=== PATIENT | female | born 1940 | race Caucasian/White ===

== ENCOUNTER 2019-03-06 12:36 | Inpatient (IN) | payer MEDICARE, OTHER ==
[~2019-03-06] VITALS: Ht 160 cm; Wt 81.6 kg
[2019-03-06] VITALS (9 sets, daily range): BP systolic 90–163; BP diastolic 46–98; Ht 160 cm; Wt 81.6 kg
--- NOTE | 2019-03-06 12:50 | NUR ---
PATIENT BIBA FOR ALOC. PER MEDIC, LAST SEEN AWAKE AND ALERT AT 1030. FAMILY WAS WITH HER AND SHE WAS SITTING ON A SOFA AND PATIENT THEN LOST CONSCIOUSNESS. PER MEDICS, PATIENT THEN HAD AGONAL BREATHING BUT THERE WAS PALPABLE PULSE. ARRIVED AT BEDSIDE AND PATIENT THEN WAS TRENDING NSR. AT BEDSIDE. PATIENT WAS SEEN MOVING ARMS. PATIENT WAS UNABLE TO ANSWER QUESTIONS.
--- NOTE | 2019-03-06 13:31 | NUR ---
DECREASED FIO2 TO 40%.
--- NOTE | 2019-03-06 13:37 | NUR ---
START VERSED AT 1 MG/HR
--- NOTE | 2019-03-06 14:01 | NUR ---
PER MD, GIVE EPI DRIP AT 5 MCG/MIN.
--- NOTE | 2019-03-06 14:09 | NUR ---
XRAY AT BEDSIDE
--- NOTE | 2019-03-06 14:32 | NUR ---
WITHDREW ETT 2-3CM PER DR. FARHAN VEGA, ETT POSITIONED AT 21CM AT THE LIP AND RESECURED BY ANCHORFAST.
[2019-03-06 14:35] LABS: BASOPHIL % 0 % (0-2); PLATELET COUNT 128 x10^3mcL (130-400); RED CELL DISTRIBUTION WIDTH 15.6 % (11.5-14.5)
[2019-03-06 16:14] LABS: ALKALINE PHOSPHATASE 130 U/L (46-116); ALT/SGPT 946 U/L (14-59); BILIRUBIN TOTAL 1.1 mg/dL (0.20-1.00); CALCIUM 10.9 mg/dL (8.5-10.1); CARBON DIOXIDE 19.1 mmol/L (21-32); CHLORIDE SERUM 97 mmol/L (98-107); GLUCOSE SERUM 305 mg/dL (74-106); SODIUM SERUM 129 mmol/L (136-145)
[2019-03-06 16:17] LABS: ALBUMIN 2.4 g/dL (3.4-5.0); AST/SGOT 1483 U/L (15-37); TOTAL PROTEIN, SERUM 6.1 g/dL (6.4-8.2)
[2019-03-06 16:18] LABS: POTASSIUM SERUM 6.4 mmol/L (3.5-5.1)
[2019-03-06 16:30] LABS: PHOSPHOROUS 7.5 mg/dL (2.5-4.9)
--- NOTE | 2019-03-06 16:34 | NUR ---
REPORT OFF TO DAWIT WINKLER
--- NOTE | 2019-03-06 16:37 | NUR ---
COMMUNICATED TO RESIDENT REGARDING POTASSIUM LEVELS. RESIDENT ACKNOWLEDGED AND STS TO GIVE KAYEXALATE WHEN TRANSFERRED TO ICU
[2019-03-06] MEDS ORDERED: NOR5 PO (17:19)
[2019-03-06] MEDS ORDERED: RANEXA500 M2 PO (17:19)
[2019-03-06] MEDS ORDERED: HYDRALAZINE HY100 MG PO (17:20)
[2019-03-06] MEDS ORDERED: LASIX80 MG PO (17:20)
[2019-03-06] MEDS ORDERED: GOOD SENSE OMEP20 MG PO (17:20)
[2019-03-06] MEDS ORDERED: HUMULIN 70/303 ML SC (17:21)
[2019-03-06] MEDS ORDERED: ISOSORBIDE MONO60 MG PO (17:21)
[2019-03-06] MEDS ORDERED: CLOPIDOGREL75 M1 PO (17:22)
[2019-03-06] MEDS ORDERED: LIPITOR40 MG PO (17:22)
[2019-03-06] MEDS ORDERED: CARVEDILOL25 M1 PO (17:23)
[2019-03-06] MEDS ORDERED: ASPIRIN ADULT L81 M5 PO (17:23)
[2019-03-06] MEDS ORDERED: NITROSTAT0.4 MG SL (17:24)
--- NOTE | 2019-03-06 17:32 | NUR ---
RECEIVED PT FROM ED WITH ED NURSE AND RT CONTACT CENTER REP. PT IS INTUBATED AND SEDATED. PT ON VENT AC MODE WITH SETTING PEEP 5, VT 400, FIO2 40%, RR 16. PT'S O2 SAT 96%. PT IS SEDATED ON VERSED 1MG/HR, RSS 5, SLUGGISH RESPONSE TO PAINFUL STIMULI WITH MINIMAL BODY MOVEMENT. PUPILS FIXED 4MM. ROBERT EXTRIMITIES SKIN COOL TO TOUCH. OGT IS INPLACE, SECURED TO OGT. PT HAS OTF CATH ON R UPPER CHEST. OLD HD SHUNT ON L ARM. IV SITES X 3 ON LEFT ARM FROM ED. PT ON EPINEPHRINE DRIP INFUSING AT 5MCG/HR. PT VS: DERRICK BARGE OPERATOR 118/55 (80), HR 85, TEMP 95.0, RR 16.
--- NOTE | 2019-03-06 17:34 | NUR ---
OBTAINED CONSENT FOR CENTRAL LINE INSERTION AT THIS TIME. WITNESS BY MYSELF.
--- NOTE | 2019-03-06 18:05 | NUR ---
TIME OUT PERFORMED AT THIS TIME WITH MYSELF, AND RAILROADER. EPI DRIP TITRATED TO 4 MCG/MIN AT THIS TIME, MAP 70.
--- NOTE | 2019-03-06 18:45 | NUR ---
MAP 57, TITRATE EPI DRIP TO 5 MCG/MIN.
--- NOTE | 2019-03-06 19:15 | NUR ---
UNABLE TO OBTAIN CENTRAL LINE ACCESS VIA LIJ. CONSENT OBTAINED AT THIS TIME FOR CENTRAL LINE INSERTION RIGHT VERSUS LEFT FEMORAL VEIN. SEE CHART FOR DETAILS.
--- NOTE | 2019-03-06 19:20 | NUR ---
RECEIVED REPORT FROM PETERSON PASTOR. WILL CONTINUE TREATMENT AND CARE PLAN.
--- NOTE | 2019-03-06 19:30 | NUR ---
DR. NEGRETE UNABLE TO OBTAIN CENTRAL LINE ACCESS THROUGH R FEMORAL VEIN.
--- NOTE | 2019-03-06 19:40 | NUR ---
CONSENT OBTAINED AT THIS TIME FOR HEMODIALYSIS, OBTAINED. SEE CHART FOR DETAILS.
--- NOTE | 2019-03-06 20:00 | NUR ---
EKG BEING DONE AT BEDSIDE.
--- NOTE | 2019-03-06 20:10 | NUR ---
DIALYISIS TECH TASIA AT BEDSIDE. CONSENT GIVEN TO PROMOTION WRITER. DIALYSIS STARTED, PT VS B/P 117/52, HR 66, RR17, O2SAT 98%.
--- NOTE | 2019-03-06 22:55 | NUR ---
BOOTH SUPERVISOR AT BEDSIDE FOR BLOOD DRAW FOR TROPONIN LEVELS.
--- NOTE | 2019-03-06 23:10 | NUR ---
HEMODIALYSIS COMPLETED. NO FLUID OUT. PT TOLERATED WELL. VS BP 117/53, HR 68, RR 19, T95.2, O2SAT 100%. WILL CONTINUE TO MONITOR.
--- NOTE | 2019-03-06 23:45 | NUR ---
TITRATED EPINEPHRINE DOWN FROM 5MCG/MIN TO 4MCG/MIN. BP 129/55. MAP 81.
[2019-03-07] VITALS (11 sets, daily range): BP systolic 96–116; BP diastolic 42–53
--- NOTE | 2019-03-07 03:43 | NUR ---
RT KT AT BEDSIDE ASSESSING PT AND GIVING BREATHING TREATMENT. PT TOLERATING WELL.
--- NOTE | 2019-03-07 04:56 | NUR ---
PUBLIC SAFETY DIRECTOR AT BEDSIDE FOR BLOOD DRAW.
--- NOTE | 2019-03-07 05:30 | NUR ---
HEPARIN GTT TITRATED UP TO 1100U/HR PER PROTOCOL. BOLUS NOT GIVEN DUE TO POSSIBLE CENTRAL LINE PLACEMENT. PTT 34.5.
[2019-03-07 05:49] LABS: BASOPHIL % 0.2 % (0-2); PLATELET COUNT 166 x10^3mcL (130-400)
[2019-03-07 05:50] LABS: CALCIUM 8.4 mg/dL (8.5-10.1); CARBON DIOXIDE 24.4 mmol/L (21-32); CHLORIDE SERUM 98 mmol/L (98-107); GLUCOSE SERUM 266 mg/dL (74-106); POTASSIUM SERUM 4.1 mmol/L (3.5-5.1); SODIUM SERUM 133 mmol/L (136-145)
--- NOTE | 2019-03-07 06:30 | NUR ---
DR. AGUSTIN AT BEDSIDE ASSESSING PT. UPDATES PROVIDED.
--- NOTE | 2019-03-07 06:49 | NUR ---
PT REMAINS INTUBATED AD SEDATED ON VERSED AT 3MCG/MIN. EPINEPHRINE AT 4MCG/MIN. HEPARIN GTT AT 800U/HR. NO PAIN OR DISCOMFORT NOTED DURING SHIFT. NO SOB OR RESPIRATORY DISTRESS NOTED. ALL LINENS AND GOWN CHANGED. PT GIVEN TOTAL BED BATH. VAP CARE PROVIDED. ALL NEEDS MET AND ANTICIPATED. REPOSITIONED Q 2HRS. BED IN LOW POSITION. CALL LIGHT WITHIN REACH. WILL ENDORSE TO ONCOMING RN.
--- NOTE | 2019-03-07 07:23 | NUR ---
GAVE REPORT TO JODI RN. ALL QUESTIONS AND CONCERNS ADDRESSED.
--- NOTE | 2019-03-07 07:50 | NUR ---
PROVIDED UPDATES TO DR. CAMPOVERDE. PER DR. CAMPOVERDE TO START PT ON FENTANYL.
--- NOTE | 2019-03-07 07:55 | NUR ---
CELENA DENNIS IN ROOM PROVIDING BREATHING TX.
--- NOTE | 2019-03-07 07:56 | NUR ---
PER DR. CAMPOVERDE TO TURN OFF HEPARIN DRIP FOR R FEMORAL CENTRAL LINE INSERTION.
--- NOTE | 2019-03-07 07:57 | NUR ---
DR. CAMPOVERDE, [facility] NEEDLEMAKER AT BEDSIDE FOR TIME OUT, PT'S NAME, PROCEDURE M# VERIFIED AT BEDSIDE. ALL IN AGGREEMENT TO TIME OUT.
--- NOTE | 2019-03-07 07:57 | NUR ---
AT BEDSIDE. PER ORDER ULTRASOUND VASCULAR ACCESS FOR CENTRAL LINE FEMORAL, CONSENT IN CHART. TIME OUT PERFORMED AT 0755. ALSO PER ORDER FENTANYL DRIP. WILL FOLLOW OUT ORDERS.
--- NOTE | 2019-03-07 08:00 | NUR ---
ECHOCARDIOGRAM PENDING-HAVING PROCEDURE
--- NOTE | 2019-03-07 08:11 | NUR ---
CENTRAL LINE TO R FEMORAL COMPLETED.
--- NOTE | 2019-03-07 08:22 | NUR ---
COMPLETED CENTRAL LINE INTO RIGHT FEMORAL VEIN, PER DR.SANDHU SESAY TO USE.
--- NOTE | 2019-03-07 08:30 | NUR ---
PER DR. CAMPOVERDE TO RESUME HEPARIN GTT, DECREASED VERSED TO 2MG/HR TO ACHIEVE RSS 4 AND TO REMOVE 3 IV TO LFA. IV CATH REMOVED TO LFAX2 AND LAC REMOVEC, IV CATHS REMOVED. PRESSURE BAG TO L EXT TO STOP BLEEDING.
--- NOTE | 2019-03-07 08:40 | NUR ---
FENTANYL INITIATED AT THIS TIME PER ORDER, INFUSING 0.5 MCG/KG/HR. MAP 74, TITRATE EPI DRIP TO 3 MCG/MIN.
--- NOTE | 2019-03-07 09:36 | NUR ---
EPI TITRATED OFF AT THIS TIME PER DC ORDER, LEVOPHED INITIATED AT 4 MCG/MIN.
--- NOTE | 2019-03-07 10:23 | NUR ---
NEPRO TUBE FEED AT 5ML/HR FWF 50ML/Q4HRS PER ORDER.
--- NOTE | 2019-03-07 11:24 | NUR ---
DR. ABAD DISCUSSING WITH PT'S FAMILY OF PT'S PROGNOSIS AND CODE DISCUSSION. PT'S FAMILY HAS DECIDED TO CHANGE CODE STATUS TO DNR AND TO PROVIDE COMFORT CARE. ALL OF PT'S FAMILY ARE IN AGREEMENT TO PLAN OF CARE.
--- NOTE | 2019-03-07 11:29 | NUR ---
PT'S FMAILY REFUSED HD.
--- NOTE | 2019-03-07 14:50 | NUR ---
PROVIDED A BATH AND CHANGED AL LINENS.
--- NOTE | 2019-03-07 16:09 | NUR ---
PT'S FAMILY EXPRESS THE DESIRE FOR COMFORT CARE, DR. AGUSTIN IS NOTIFIED.
--- NOTE | 2019-03-07 17:05 | NUR ---
MORPHINE DRIP IN PLACE, PT EXTUBATE WITH RT AT BEDSIDE.
--- NOTE | 2019-03-07 22:51 | NUR ---
BLOCK TESTER CALLED; RELEASES PATIENT. REFERENCE #: [id number]. [facility] CONTACTED; REFERENCE #: [id number]. PT CLEANED, LINES REMOVED, SECURITY CALLED.
--- NOTE | 2019-03-07 23:04 | NUR ---
PT TAKEN OFF FLOOR BY SECURITY. PAPERWORK PROVIDED.
== END 2019-03-07 23:05 | disposition expired ==
LOC: ED 12:36 → IC 15:51
PROVIDERS: Emergency Medicine; ADMIT Family Medicine
PROC: 5A1945Z Respiratory Ventilation, 24-96 Consecutive Hours (ICD-10-PCS; principal; 2019-03-06)
PROC: 0BH17EZ Insertion of Endotracheal Airway into Trachea, Via Natural or Artificial Opening (ICD-10-PCS; 2019-03-06)
PROC: 5A12012 Performance of Cardiac Output, Single, Manual (ICD-10-PCS; 2019-03-06)
DX: I21.4 Non-ST elevation (NSTEMI) myocardial infarction (principal); J96.01 Acute respiratory failure with hypoxia; N18.6 End stage renal disease; K72.00 Acute and subacute hepatic failure without coma; G93.41 Metabolic encephalopathy; E43 Unspecified severe protein-calorie malnutrition; N17.0 Acute kidney failure with tubular necrosis; E87.2 Acidosis; E87.1 Hypo-osmolality and hyponatremia; I13.11 Hypertensive heart and chronic kidney disease without heart failure, with stage 5 chronic kidney disease, or end stage renal disease; R57.0 Cardiogenic shock; E87.5 Hyperkalemia; E11.22 Type 2 diabetes mellitus with diabetic chronic kidney disease; E11.65 Type 2 diabetes mellitus with hyperglycemia; D69.59 Other secondary thrombocytopenia; E83.52 Hypercalcemia; E83.39 Other disorders of phosphorus metabolism; I25.10 Atherosclerotic heart disease of native coronary artery without angina pectoris; D69.6 Thrombocytopenia, unspecified; D63.8 Anemia in other chronic diseases classified elsewhere; I25.2 Old myocardial infarction; Z68.26 Body mass index [BMI] 26.0-26.9, adult; Z99.2 Dependence on renal dialysis; Z79.4 Long term (current) use of insulin; Z95.5 Presence of coronary angioplasty implant and graft; Z66 Do not resuscitate
CPT/HCPCS: 36556; 36600; 82962; 83880; A4628; A4719; C9113; J0171; J1642; J1644; J1815; J1817; J2250; J2270; J2543; J3010; J3370; J3475; J3490; J7030; J7050; J7613; J7620; Q0092